=== PATIENT | female | born 2000 | race Caucasian/White ===

== ENCOUNTER 2020-02-01 19:07 | Outpatient (CLI) | payer SELFPAY ==
--- NOTE | 2020-02-01 19:40 | RAD ---
THREE VIEWS RIGHT FOOT: 02/01/20 COMPARISON: None. HISTORY: Injury to the right foot with right foot pain. FINDINGS: Three views of the right foot shows no evidence of acute fracture or dislocation. No soft tissue swel ling is seen. No degenerative changes are present. IMPRESSION: No evidence of acute osseous abnormality. POS: [facility]
== END 2020-02-01 19:08 | disposition home or self-care (01) ==
LOC: SCSRAD 19:07
PROVIDERS: ATTEND Nurse Practitioner
DX: S90.31XA Contusion of right foot, initial encounter (principal)